=== PATIENT | female | born 1950 | race Caucasian/White ===

== ENCOUNTER 2016-11-04 22:22 | Inpatient (IN) | payer MEDICARE, BC ==
--- NOTE | ~2016-11-04 | HP ---
History And Physical [place] [id number] [facility] [place]. [address] NAME: NIKKI HEATON : 50 STATUS : ADM IN [facility]#: [id number] AGE: 65 ADM/REG DATE : 11/04/16 MR#: [id number] REPORT SERV DATE: 11/05/16 DICTATED BY: HEIDI SALVADOR DATE: 11/05/16 REPORT STATUS : Draft TRANSCRIBED BY: MODAman DATE: 11/05/16 DATE OF ADMISSION: 11/04/2016 CHIEF COMPLAINT: Heart valve infection. HISTORY OF PRESENT ILLNESS: Ms Heaton is a 65-year-old female with a past medical history of coronary artery disease, status post CABG [place] [address] Hutchinson, who is also noted to have two other vessels of 50% occlusion. However, around 10 days ago, the patient went to the ED after she could not walk anymore due to a mechanical fall that she had two weeks prior. Orthopedic surgeon has seen the patient, they have done a bone scan which was negative. She was also having shoulder pain, left greater than right shoulder pain. A C- spine MRI was done, which shows stenosis of the spine, but no cord compression. However, the patient continued to get more weakness and re-presented to the emergency room 24 hours ago. At that time, she was noted to be hypotensive, dehydrated, septic, and thrombocytopenic. She had a positive blood culture and found a vegetation on the mitral valve. Infectious Disease has seen the patient and have started her on vancomycin and Rocephin. She was transferred to our institution for evaluation by Cardiothoracic Surgery. Otherwise, the patient does not have any significant complaints at this moment in time. PAST MEDICAL HISTORY: Coronary artery disease status post CABG, polymyalgia rheumatica, ischemic bowel one year ago status post ileostomy, chronic prednisone. MEDICATIONS: Home medication includes as needed prednisone. ALLERGIES: THE PATIENT GETS NAUSEA WITH MORPHINE AND SULFA DRUGS. FAMILY HISTORY: Father had a history of lung cancer and from that, he was a heavy smoker. Mother had Alzheimer disease. Brother had an intracranial aneurysm, status post rupture and survived. REVIEW OF SYSTEMS: All pertinent review of systems reviewed and are otherwise negative. PHYSICAL EXAMINATION: VITAL SIGNS: Afebrile, heart rate 85, respiratory rate 12 to 14, oxygen saturation currently 100% on nasal cannula, blood pressure currently in the 130 systolic. GENERAL: The patient is resting in bed, no acute distress. HEENT: No JVD. Neck is supple. PULMONARY: Lungs are clear to auscultation bilaterally. CARDIAC: Regular rate, positive murmur, and the systolic ejection murmur heard best at the left sternal border. ABDOMINAL EXAMINATION: Abdomen is soft, nontender, nondistended. She has an ileostomy in place. Chronic healing wound noted in the periumbilical area. EXTREMITY EXAMINATION: No lower extremity edema. Peripheral pulses noted. IMAGING/LABORATORY DATA: Outside imaging and lab work shows white blood cell count 12.8, History And Physical [address] [address] NAME: NIKKI HEATON : 50 STATUS : ADM IN [facility]#: [id number] AGE: 65 ADM/REG DATE : 11/04/16 MR#: [id number] REPORT SERV DATE: 11/05/16 DICTATED BY: HEIDI SALVADOR DATE: 11/05/16 REPORT STATUS : Draft TRANSCRIBED BY: MODAman DATE: 11/05/16 normal creatinine. ASSESSMENT AND PLAN: Ms Heaton is a 65-year-old female with a past medical history noted above, who currently presents with endocarditis. At this moment in time, we will obtain outside hospital records, continue antibiotic therapy. We will have Cardiothoracic Surgery and Cardiology consultation. We will have the patient n.p.o. pending surgical evaluation. Prophylaxis. HFQ/MODL Heidi Salvador MD / [id number] CC: Tresa Mendoza MD
--- NOTE | ~2016-11-04 | CN ---
Consultation Report [facility] [address] [place]. [address] NAME: NIKKI CASTANEDA : 50 STATUS : ADM IN [facility]#: [id number] AGE: 65 ADM/REG DATE : 11/04/16 MR#: [id number] REPORT SERV DATE: 11/07/16 DICTATED BY: JEAN SINGH DATE: 11/06/16 REPORT STATUS : Draft TRANSCRIBED BY: MODL DATE: 11/06/16 CONSULTATION NOTE DATE OF CONSULTATION: 11/06/2016 REFERRING PHYSICIANS: Hospitalist. REASON FOR REFERRAL: Evaluation of endocarditis. HISTORY: The patient is a 65-year-old female who approximately two years ago underwent single-vessel coronary artery bypass grafting by Dr. Isaias Hutchinson at [facility]. More recently, she was having weakness, fatigue, inability to eat and presented to the [facility] Emergency Department where she was found to be septic. She was admitted with relative hypotension and echocardiogram showed mitral valve endocarditis. She was, therefore, thereafter transferred to [facility] for further care. Upon arrival to [facility], she was found to be severely thrombocytopenic with platelet count in the 30s as well as severely malnourished with an albumin of 1.4. A transesophageal echocardiogram was performed yesterday by Dr. Wing, which showed [id number] mitral valve regurgitation with vegetation on the mitral valve leaflets of approximately 2 cm in size. PAST MEDICAL HISTORY: Significant for coronary artery disease; polymyalgia rheumatica, on chronic prednisone; history of colon cancer with partial colectomy and subsequent ischemic bowel requiring ileostomy in 2015 with a residual nonhealing abdominal wound; history of obstructive uropathy with urosepsis and candidal UTI; obstructive sleep apnea; dyslipidemia; hypertension; and nephrolithiasis. PAST SURGICAL HISTORY: Includes ureteral stent placement, ischemic bowel and ileostomy as above, coronary artery bypass grafting, incisional hernia repair, breast reduction, appendectomy, hysterectomy, orthopedic surgery with hardware in 1990, a right total knee and a right total hip replacement. FAMILY HISTORY: Significant for colon cancer and Alzheimer disease. ALLERGIES: TO BACTRIM AND MORPHINE. SOCIAL HISTORY: No tobacco. Used alcohol occasionally. TRANSFER MEDICATIONS: Rocephin, vancomycin, heparin, sliding scale insulin, Bactroban, Protonix, Dilaudid, and oxycodone. REVIEW OF SYSTEMS: Otherwise, negative that which was stated above. PHYSICAL EXAMINATION: VITAL SIGNS: She is currently afebrile and vital signs are all stable. Consultation Report [place] [address] [place]. [address] NAME: NIKKI CASTANEDA : 50 STATUS : ADM IN PAT#: [id number] AGE: 65 ADM/REG DATE : 11/04/16 MR#: [id number] REPORT SERV DATE: 11/07/16 DICTATED BY: JEAN SINGH DATE: 11/06/16 REPORT STATUS : Draft TRANSCRIBED BY: ARACELI DATE: 11/06/16 GENERAL: She is lying in bed, extremely tired, and is currently not communicating. HEART: Regular rate and rhythm with a 3/6 systolic murmur. CHEST: Clear to auscultation bilaterally. ABDOMEN: Soft with a nonhealing wound and colostomy bag. MUSCULOSKELETAL: Grossly intact. NEUROLOGIC: Grossly intact. STUDIES: I personally reviewed her transesophageal echocardiogram and agree with the findings of Dr. Wing. IMPRESSION: Mitral valve endocarditis in a very sick and debilitated lady. PLAN: Due to her severe malnutrition; thrombocytopenia; poor wound healing state, on chronic prednisone, I think she is a poor surgical candidate currently. Good thing is that she does not have severe mitral regurgitation associated with this and a normal ejection fraction, so I think her heart can tolerate this [id number] degree of mitral regurgitation. I would advocate medical therapy currently, specifically antibiotics for a full course treatment with improvement of her nutritional status as well. At some point, approximately two weeks or further down the road, she will need to be reimaged to see if the vegetation is breaking apart or if the mitral valve is worsening as far as regurgitation. Again, as long as she is severely thrombocytopenic and malnourished, I would not recommend surgery until these were corrected. CCR/MODL Jean Singh M.D. / [id number] CC: Tresa Mendoza MD [facility]
--- NOTE | ~2016-11-04 | IDS ---
Interim Discharge Summary [facility] [address] [place]. [address] NAME: NIKKI CASTANEDA : 50 STATUS : ADM IN PAT#: [id number] AGE: 65 ADM/REG DATE : 11/04/16 MR#: [id number] REPORT SERV DATE: 11/11/16 DICTATED BY: ENID VIDAL DATE: 11/11/16 REPORT STATUS : Draft TRANSCRIBED BY: MODL DATE: 11/11/16 ADMISSION DATE: 11/04/2016 DISCHARGE DATE: REASON FOR ADMISSION: Transferred from [facility] for CT surgery consultation for her endocarditis. HISTORY OF PRESENT ILLNESS: Please refer Dr. Salvador's History and Physical dated 11/06/2007 for complete details on the patient's admission. In brief, the patient was admitted directly to the [employer] [facility] from [facility] for treatment of her bacterial endocarditis. HOSPITAL COURSE: The patient was initially transferred to Dr. Salvador's Service from [facility]. She was then transferred to the floor the following day. I assumed care of this patient on 11/05/2016. She initially was found have Streptococcus bacteremia at [facility], then transferred here for evaluation. She is found have strep bacterial endocarditis. [facility] was consulted Dr. Osman did the initial consultation, recommended a CHIO. CHIO was done by Dr. Wing on 11/05/2016, which showed a preserved left ventricular function of 60%, along with a large 1.5 x 2 cm vegetation on the mitral valve, with moderate anteriorly directed mitral regurgitation. With these findings, Cardiology recommended CT surgery evaluation. Dr. Anderson felt that the patient was a poor surgical candidate and will best be served by treatment of endocarditis with medical therapy. Dr. Tolentino had been on board on day #1, and switched her antibiotics over to penicillin G for her bacterial endocarditis. Cardiology had continued to follow the patient, but has now signed off on 11/11/2016, with plans to follow up as an outpatient with Dr. Gipson on 12/23/2016. Dr. Tolentino recommended getting a repeat echocardiogram in a few weeks to monitor the size of the vegetation. The patient's hospitalization is complicated by gross hematuria. She does have a history of ureteral stricture with a stent. The stricture was caused by I think previous radiation therapy after having colon cancer many years ago. She had a stent placed according to her , who was a family physician. The patient gets the stents exchanged out every one to three months by her urologist in [place]. She was developing gross hematuria, likely secondary to severe thrombocytopenia with a platelet count of 30. Continuous bladder irrigation was not clearing it up. Dr. Pandey was consulted and finally on 11/09/2016, he performed a cysto with clot evacuation and fulguration. Again, her gross hematuria was resolving after the clot evacuation, and since her platelet count had been increasing, however, she is now continuing to start throwing blood clots again and her urine is still bloodish-tinged. She is still on continuous bladder irrigation. Dr. Pandey continues to follow the patient. Wound care had been following the patient, as the patient has an open wound that was draining, and there is no signs of active infection, but of course, it is always a concern that she could be developing a fistula. She also did have some complaints of left pleuritic chest pain and some shortness of breath which is new on 11/11/2016. On physical exam, she does have significant crackles on the left side, but her lungs were clear to auscultation on the right. She does have some left upper extremity edema. She does have significant hypoalbuminemia, secondary to her chronic issues, and we will try some Lasix to see if this helps. She has ecchymosis diffusely which is her baseline according to her . She has severe PMR and she is on chronic steroids. Her Interim Discharge Summary [address] [address] NAME: NIKKI CASTANEDA : 50 STATUS : ADM IN [facility]#: [id number] AGE: 65 ADM/REG DATE : 11/04/16 MR#: [id number] REPORT SERV DATE: 11/11/16 DICTATED BY: ENID VIDAL DATE: 11/11/16 REPORT STATUS : Draft TRANSCRIBED BY: MODL DATE: 11/11/16 had sought her on steroid taper for her PMR, which we are currently in the midst of. She feels that her PMR though is getting better and is not as painful. She was noted to have a stage III decubitus ulcer prior to admission and air mattress was initiated. She was given two units of platelets for her thrombocytopenia prior to her cystoscopy. She did develop acute blood loss anemia, was likely secondary to her hematuria for which she received two units of packed red blood cells on the 11/09/2016 or 11/10/2016. Her hemoglobin has been stable since then. They did check a Hemoccult and 2/3 are positive, however, I suspect that her acute loss anemia likely secondary to hematuria and not from a GI bleed. DISPOSITION: We are making arrangements for the patient to be transferred to [facility] for long-term IV antibiotics. A PICC line should be placed prior to discharge, however, she is not ready for discharge as she continues to have gross hematuria and needs continuous bladder irrigation. Once this issue has resolved and she should be able to be transferred to [facility]. Further disposition per oncoming hospitalist. INTERIM DIAGNOSES: Gross hematuria with a history of ureteral stricture, status post stent in the past, status post cystoscopy by Dr. Pandey with clot evacuation and fulguration. Acute blood loss anemia, likely secondary to hematuria, possible volume overload, secondary to hypoalbuminemia. Hemoccult positive streptococcal endocarditis. PMR stage III decubitus, thrombocytopenia, initially likely secondary to infection, but now could be secondary to medication use. We will continue to monitor. History of colon cancer, status post colectomy abdominal wound. PROCEDURES: Include consultation Dr. Pandey, Dr. Tolentino, Dr. Wing, Dr. Osman, Wound Care, transesophageal echocardiogram, cystoscopy with clot evacuation. NEGRITO/ARACELI Enid Vidal MD / [id number] CC: Tresa Mendoza MD
--- NOTE | ~2016-11-04 | OP ---
Record Of Operation [facility] [address] [place]. [address] NAME: NIKKI HEATON : 50 STATUS : ADM IN [facility]#: [id number] AGE: 65 ADM/REG DATE : 11/04/16 MR#: [id number] REPORT SERV DATE: 11/09/16 DICTATED BY: SUKHDEV ARTHUR III DATE: 11/09/16 REPORT STATUS : Draft TRANSCRIBED BY: MODL DATE: 11/09/16 DATE OF PROCEDURE: 11/09/2016 PREOPERATIVE DIAGNOSIS: Gross hematuria with clot retention. POSTOPERATIVE DIAGNOSIS: Gross hematuria with clot retention. PROCEDURE: Cystoscopy, clot evacuation, and fulguration. SURGEON: Sukhdev Arthur M.D. ANESTHESIA: General. ESTIMATED BLOOD LOSS: 10 mL. DRAIN: A 24-Iranian three-way Foreman catheter. INDICATION: Ms. Heaton is a 65-year-old white female admitted to the hospital with endocarditis. She became thrombocytopenic and began having gross hematuria with clot retention. Bladder irrigation was begun, but this has been unsuccessful, she keeps having clots obstructing the catheter. A consent was obtained for the above procedure. DESCRIPTION OF PROCEDURE: After consent was obtained, the patient identified. She was taken to the OR and put to sleep. She was positioned in the low lithotomy position and prepped and draped in the usual fashion. The 25-Iranian cystoscope was made ready, inserted into the bladder, a clot was encountered; this was evacuated using the [employer] evacuators as she does have a right ureteral stent in place. The Bugbee electrode was used to cauterize a few areas where there was some oozing of blood. The bladder was left full and the scope removed. A 24-Iranian three-way Foreman catheter was inserted, the balloon inflated to 10 mL, and the bladder irrigation was begun. The patient was awakened and taken to recovery in stable condition. PH/MODL Sukhdev Arthur III, M.D. / [id number] CC: Tresa Mendoza MD
--- NOTE | ~2016-11-04 | CN ---
Consultation Report [facility] [address] [place]. [address] NAME: NIKKI HEATON : 50 STATUS : ADM IN [facility]#: [id number] AGE: 65 ADM/REG DATE : 11/04/16 MR#: [id number] REPORT SERV DATE: 11/05/16 DICTATED BY: SAM OSMAN DATE: 11/05/16 REPORT STATUS : Draft TRANSCRIBED BY: MODL DATE: 11/05/16 CARDIOLOGY CONSULTATION DATE OF CONSULTATION: 11/05/2016 REASON FOR CONSULTATION: Subacute bacterial endocarditis with mitral regurgitation. HISTORY OF PRESENT ILLNESS: Ms. 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 The patient sees Dr. Gipson for her cardiology care. She has history of coronary heart disease, status post minimally invasive left internal mammary artery to LAD surgery. The patient was in her usual state of health until several weeks prior to admission. Apparently, the patient was experiencing generalized fatigue, diffuse myalgias, and dizziness with a fall. The patient was also seen in Cardiology Clinic on 10/22, where she was complaining of increasing shortness of breath and swelling. The patient has a history of polymyalgia rheumatica. Her symptoms were apparently attributed to this. The patient had an increase in her chronic prednisone. Of note, the patient also has a slowly healing chronic abdominal wound with a small amount of chronic exudate. She has a colostomy from previous colectomy secondary to colon cancer. She also reports that she had her nails done and suffered a cut on her toe, which subsequently became inflamed and expressed some purulent drainage. The patient presented back to [facility] Emergency Room on 11/03/2016. At that time, the patient was apparently found to be hypotensive. The patient was admitted to the intensive care unit and treated for a septic shock with antibiotics. She apparently did not require vasopressors. She was started on vancomycin and Rocephin. The patient later had an echocardiogram performed, which demonstrated a mitral valve vegetation with moderate mitral regurgitation. The patient has been transferred to [facility] for further evaluation and management. At this time, the patient complains of generalized myalgias and extreme fatigue. She denies anginal-type chest pain. She denies dyspnea. PAST MEDICAL HISTORY: 1. History of polymyalgia rheumatica, on chronic prednisone. 2. History of colon cancer with partial colectomy and subsequent ischemic bowel, requiring ileostomy in 2016. The patient has a residual abdominal wound, which has been healing slowly over the last year. 3. Colon cancer, status post surgical resection and radiation treatment in the year 1999. 4. History of obstructive uropathy with urosepsis and candidal UTI. 5. Obstructive sleep apnea. 6. Coronary artery disease, status post single-vessel bypass surgery by Dr. Hutchinson in 2014. Consultation Report [place] [address] [facility] [place]. [id number] NAME: NIKKI HEATON : 50 STATUS : ADM IN [facility]#: [id number] AGE: 65 ADM/REG DATE : 11/04/16 MR#: [id number] REPORT SERV DATE: 11/05/16 DICTATED BY: SAM OSMAN DATE: 11/05/16 REPORT STATUS : Draft TRANSCRIBED BY: ARACELI DATE: 11/05/16 7. Dyslipidemia. 8. Hypertension. 9. Nephrolithiasis. PAST SURGICAL HISTORY: Significant for: 1. Cystoscopy with ureteral stent placement. 2. Colectomy with subsequent surgery for ischemic bowel and ileostomy as noted above. 3. Coronary artery bypass graft surgery x1 with CROUCH to LAD in the year 2014. 4. Incisional hernia repair in 2013. 5. Breast reduction in 1983. 6. Appendectomy in 1999. 7. Hysterectomy in 1999. 8. Orthopedic surgery to the patient's leg with placement of hardware in the year 1990. 9. Ventral hernia repair in 2000. 10.Right total hip replacement. 11.Right total knee replacement. FAMILY HISTORY: Apparently significant for colon cancer and Alzheimer disease, but negative for early coronary heart disease or sudden cardiac . ALLERGIES: THE PATIENT HAS DOCUMENTED ALLERGIES TO BACTRIM AND MORPHINE. SOCIAL HISTORY: The patient has no history of tobacco use. She has used alcohol recreationally in the past, but has no significant history of alcohol or drug abuse. TRANSFER MEDICATIONS: 1. Rocephin 1 g q.24 hours. 2. Vancomycin, per pharmacy dosing. 3. Heparin 5000 units subcu q.8 hours. 4. Sliding scale insulin. 5. Bactroban nasal ointment. 6. Protonix 40 mg IV daily. 7. Dilaudid p.r.n. 8. Oxycodone p.r.n. 9. IV normal saline. REVIEW OF SYSTEMS: A complete 12-system review was performed. This is noncontributory, except for the pertinent positives and negatives noted in the history of present illness above. PHYSICAL EXAMINATION: VITAL SIGNS: Temperature is 98.7 degrees Fahrenheit, blood pressure is 110/64 mmHg, heart rate is 90 beats per minute and regular, respirations 14, oxygen saturation is 97% on a 2 L nasal cannula. CONSTITUTIONAL: The patient is an ill-appearing 65-year-old woman, who is in no acute Consultation Report [address] [address] NAME: NIKKI HEATON : 50 STATUS : ADM IN [facility]#: [id number] AGE: 65 ADM/REG DATE : 11/04/16 MR#: [id number] REPORT SERV DATE: 11/05/16 DICTATED BY: SAM OSMAN DATE: 11/05/16 REPORT STATUS : Draft TRANSCRIBED BY: ARACELI DATE: 11/05/16 distress at this time. EYES: PERRL, EOMI. Clear conjunctiva. HEAD/MNT: NCAT with moist mucous membranes and grossly normal hard and soft palate. NECK: Supple with no obvious thyromegaly or lymphadenopathy. CARDIOVASCULAR: There is a regular rhythm with a normal S1 and a physiologically split second heart sound. There is a grade 3/6 holosystolic murmur noted at the cardiac apex, which radiates throughout the precordium. The jugular venous pressure is normal. PULMONARY: Limited exam as the patient has poor inspiratory effort and is unable to sit forward. However, the lungs are grossly clear to auscultation bilaterally with no wheezing, rales, rhonchi, or dullness to percussion noted. ABDOMEN: The abdomen is soft and nontender. There is a colostomy bag noted in the right lower quadrant, which is clean, dry and intact. The patient has dressing over a slowly healing abdominal wound in the midline with evidence of a small amount of drainage. No gross organomegaly is noted. EXTREMITIES: There is 2+ pitting edema of the lower extremities bilaterally. MUSCULOSKELETAL: Grossly normal strength and range of motion in all extremities. SKIN: There is skin laxity with diffuse bruising of various stages, consistent with chronic prednisone use. Aside from the aforementioned abdominal wound, there do not appear to be any other active lesions at this time. NEURO/PSYC: Alert and oriented x3 with no dysarthria, facial droop, or lateralizing weakness noted. DATA: 12-lead EKG: A 12-lead EKG has not been performed yet at [facility]. An old EKG from [facility] is reviewed and shows normal sinus rhythm with nonspecific ST/T-wave abnormalities. The GA interval is normal. Chest x-ray: Pending. Laboratory: Labs from [facility] indicate gram-positive cocci in pairs and chains with preliminary speciation being consistent with group B strep. CBC shows a white blood cell count of 11.4, hemoglobin 9.1, hematocrit 28, platelets 39. Metabolic profile shows a sodium of 141, potassium 4.0, chloride is 108, CO2 is 24, BUN 29, creatinine is 0.8, calcium is 7.4, albumin is severely decreased at 1.3 with total protein decreased at 5.3. A TSH is within normal limits at 0.4. ASSESSMENT AND PLAN: 1. Group B strep mitral endocarditis: The echocardiogram from [facility] indicates that the patient's vegetation measures 1.0 x 1.2 cm. There is moderate mitral regurgitation. The patient does have a pronounced murmur, and I feel it would be important to accurately quantify the degree of mitral regurgitation as well as evaluate for any evidence of abscess or other involvement which may require surgery. The patient has been n.p.o. and reports she had no breakfast this morning and has had essentially no p.o. intake. The transesophageal echocardiogram will be scheduled as soon as possible this afternoon. The patient appears to be a relatively poor candidate Consultation Report [place] [id number] [facility] [place]. [address] NAME: NIKKI HEATON : 50 STATUS : ADM IN [facility]#: [id number] AGE: 65 ADM/REG DATE : 11/04/16 MR#: [id number] REPORT SERV DATE: 11/05/16 DICTATED BY: SAM OSMAN DATE: 11/05/16 REPORT STATUS : Draft TRANSCRIBED BY: MODL DATE: 11/05/16 for surgery. If at all possible, the patient's condition will be managed medically. Her thrombocytopenia, decreased albumin, and poor functional status would make me very concerned if sternotomy were required. 2. Elevated cardiac biomarkers: The patient was found to have mildly elevated cardiac biomarkers at [facility]. This most likely represents a WHO type 2 [place]. It is possible the patient was started on subcu heparin for this, though this may be for DVT prophylaxis. At any rate, given the patient's anemia and thrombocytopenia, I would recommend utmost Lovenox 40 mg subcu for DVT prophylaxis with no therapeutic heparin as the patient's elevated troponin likely is secondary to demand ischemia. The maximum troponin I appears to have been 0.85. 3. Evaluation for congestive heart failure. I will obtain a portable chest x-ray. The patient did have an elevated BNP noted at [facility], which was apparently 729. This is somewhat concerning for clinically significant mitral regurgitation. Again, a transesophageal echocardiogram will be obtained to address this issue. 4. The ID Service is following the patient and is making recommendations for antimicrobial therapy. Thank you for allowing me to participate in the care of Ms. Heaton. We will continue to follow the patient closely during this admission. JCH/MIKEL Sam Osman MD / [id number] CC: Tresa Mendoza MD
--- NOTE | ~2016-11-04 | TEE ---
Transesophageal Echocardiogram [place] [id number] [place]. [address] NAME: NIKKI CASTANEDA : 50 STATUS : ADM IN [facility]#: [id number] AGE: 65 ADM/REG DATE : 11/04/16 MR#: [id number] REPORT SERV DATE: 11/05/16 DICTATED BY: ADRIAN WING DATE: 11/05/16 REPORT STATUS : Draft TRANSCRIBED BY: ARACELI DATE: 11/05/16 TRANSESOPHAGEAL ECHOCARDIOGRAM INDICATION: A 65-year-old woman with endocarditis. PROCEDURE: After questions were answered, the consents were signed, the patient was sedated with propofol per Anesthesia. The probe was placed in the midesophagus and images were obtained without difficulty. At the conclusion of the procedure, the probe was withdrawn and the patient was recovering in the short-stay unit. No complications were noted. 2D INTERPRETATION: The left ventricular size and function is normal. The heart was somewhat off axis with somewhat difficulty in evaluating everything clearly. The mitral valve opened adequately. There was a large vegetation which appeared to be on the atrial aspect of the posterior leaflet of the mitral valve, it had a large sessile component, but also with small filamentous component as well. Rough dimensions were 1.5 x 2.0 cm. There was no clear involvement of the anterior leaflet. The left atrium was enlarged. No thrombus was suggested in the left atrium or in the left atrial appendage. There was moderate anteriorly directed mitral regurgitation. Pulmonary veins on the right and the left were evaluated with normal S and D waves with no sign of systolic flow reversal. The interatrial septum was grossly intact. There was lipomatous hypertrophy of the septum with significant shadowing on all angles interfering with evaluation of the tricuspid valve. Color flow showed no significant tricuspid regurgitation, but valve structure and vegetation could not be clearly seen. The pulmonic valve was reasonably seen with no obvious vegetation and no significant pulmonic insufficiency. The aortic valve was trileaflet and opened adequately. No vegetation or insufficiency was noted. The right ventricle was grossly normal in size. No pericardial effusion was noted. Moderate atherosclerotic plaquing was noted in the aorta and aortic arch. Color flow reported as above. CONCLUSION: 1. PRESERVED LEFT VENTRICULAR SYSTOLIC FUNCTION WITH ESTIMATED LVEF OF 60%. 2. LARGE 1.5 X 2.0 CM VEGETATION ON THE MITRAL VALVE WITH MODERATE ANTERIORLY DIRECTED MITRAL REGURGITATION. MODERATE ATHEROSCLEROTIC PLAQUING WAS NOTED IN THE DESCENDING AORTA AND AORTIC ARCH. 3. NO OTHER AREAS OF ENDOCARDITIS WERE VISUALIZED. WO/MODL Adrian Wing M.D., Ph.D, F.A.C.C. / [id number] CC: Transesophageal Echocardiogram [address] [address] NAME: NIKKI CASTANEDA : 50 STATUS : ADM IN [facility]#: [id number] AGE: 65 ADM/REG DATE : 11/04/16 MR#: [id number] REPORT SERV DATE: 11/05/16 DICTATED BY: ADRIAN WING DATE: 11/05/16 REPORT STATUS : Draft TRANSCRIBED BY: ARACELI DATE: 11/05/16 Tresa Mendoza MD
--- NOTE | ~2016-11-04 | DS ---
Discharge Summary [place] [id number] [place]. [address] NAME: NIKKI CASTANEDA : 50 STATUS : DIS IN PAT#: [id number] AGE: 66 ADM/REG DATE : 11/04/16 MR#: [id number] REPORT SERV DATE: 11/16/16 DICTATED BY: MCKENZIEMAGALIS CRISTINE DATE: 11/15/16 REPORT STATUS : Draft TRANSCRIBED BY: MODL DATE: 11/15/16 ADMISSION DATE: 11/04/2016 DISCHARGE DATE: 11/15/2016 DISCHARGE DIAGNOSES: 1. Sepsis with endocarditis. The patient is not a surgical candidate. Continue the penicillin G until 12/14/2016. PICC line is inserted today. 2. Hemorrhagic cystitis, most likely related with the previous radiation injury to the bladder, has been troubled with hematuria. It has been treated with Dr. Pandey here with a bladder irrigation and we used alum last time and then had a very serious reaction to that with bladder spasm, so it was discontinued, but it started to clear up. 3. Thrombocytopenia secondary to sepsis. 4. Chronic steroid use with chronic pain medicine. 5. Decubitus ulcer stage 2. 6. Obesity. CONSULTANTS: 1. Dr. Osman. 2. Dr. Tolentino. 3. Dr. Pandey. 4. Dr. Farias. PROCEDURES: 1. CHIO showed a large 1.5 x 2.0 vegetation on the mitral valve. 2. Cystoscope and clot evacuation with Dr. Pandey. HISTORY OF PRESENT ILLNESS: This is a 66-year-old unfortunate female patient, who has been on chronic steroids for polymyalgia rheumatica, who was transferred from [facility] to get surgical opinion for her endocarditis with mitral valve vegetation. Please see dictated H and P done by Dr. Salvador. HOSPITAL COURSE: Initially, she was admitted to the hospital in ICU setting for bacterial endocarditis evaluation. Seen by the multiple consultants and cardiothoracic surgeon. She was thought to be not a good candidate for the open heart surgery along with her chronic comorbidities. She decided to be continuing the penicillin G treatment for the mitral valve endocarditis. She stayed in stable condition throughout the hospital stay. Please see dictated interim discharge summary done by Dr. Vidal. For the last days of her hospitalization, it was more related with hematuria with anemia. She did not require transfusion. She had to go and get the cystoscope with Dr. Pandey due to this hematuria. After that, she was put on irrigation. Continued to have the hematuria but her H and H have been stable. Her thrombocytopenia has been improved. So for the last couple of days, she has been on alum irrigation, but she had a bladder spasm with it and Dr. Pandey discontinued the bladder irrigation. Now, she is voiding without any problem and postvoid residual is not big in amount, it was less than 50 mL every time we checked. Discharge Summary [place] [id number] [place]. [address] NAME: NIKKI CASTANEDA : 50 STATUS : DIS IN PAT#: [id number] AGE: 66 ADM/REG DATE : 11/04/16 MR#: [id number] REPORT SERV DATE: 11/16/16 DICTATED BY: MAGALIS PEREZ DATE: 11/15/16 REPORT STATUS : Draft TRANSCRIBED BY: ARACELI DATE: 11/15/16 Finally, we had a PICC line done on her right on and it is working and the patient continued to use the penicillin G at the [facility] until 12/14/[address] Tolentino's instruction. Overall, she had improvement, stabilized, maximized the inpatient benefit. 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 DISCHARGE MEDICATIONS: 1. Continue aspirin 81 mg once a day. 2. Lipitor 10 mg once at nighttime. 3. Vitamin B once a day. 4. Prozac 40 mg once a day. 5. Folic acid 800 mg every 48 hours. 6. Multivitamin once a day. 7. Trazodone 100 mg once at bedtime. 8. Prednisone will be tapered down slowly every week down to 10 mg, currently she is on 20 mg. We are going to continue at 5 mg for her maintaining dose. 9. Penicillin G will continue to be 24 hours. Continue to use until 12/14/2016. 10.Percocet 5 as needed. DISPOSITION: The patient is discharged to [facility] for a rehab when ongoing IV antibiotic treatment. TIME SPENT: More than 30 minutes on discharge coordination. EKL/MODL Magalis Perez M.D. / [id number] CC: Tresa Mednoza MD
--- NOTE | ~2016-11-04 | CN ---
Consultation Report [facility] [address] [place]. [address] NAME: NIKKI CASTANEDA : 50 STATUS : ADM IN PAT#: [id number] AGE: 65 ADM/REG DATE : 11/04/16 MR#: [id number] REPORT SERV DATE: 11/05/16 DICTATED BY: ALEJANDRO ABEL DATE: 11/05/16 REPORT STATUS : Draft TRANSCRIBED BY: MODL DATE: 11/05/16 INFECTIOUS DISEASE CONSULT DATE OF CONSULTATION: REASON FOR EVALUATION: Treatment of endocarditis. HISTORY OF PRESENT ILLNESS: The patient is a 65-year-old female. She has a history of coronary artery disease. She had coronary artery bypass grafting in 2014. She was diagnosed with colon cancer, for which she had a resection seventeen years ago. She was diagnosed several years ago with polymyalgia rheumatica, which was controlled by steroids. She remains on a dose of 5 mg of prednisone per day. In 2015, she developed abdominal pain, was found to have an obstruction, and required surgery for small-bowel obstruction and an ileostomy. The wound has been slowly closing over the last year, was not felt to be infected. She states she started feeling ill sometime in the last couple of weeks with just general malaise, weakness. She actually fell about two weeks ago and began to hurt and ache all over including her lower extremities, her right shoulder. She was seen in the emergency room at the end of October and multiple imaging modalities were done with no findings of any sort of fracture or deep injury, but she continued to feel worse and worse, re-appeared at [facility] on 11/03/2016 so weak she said she really could not continue on. Her blood pressure was lower. Her blood pressure medicines had to be stopped. She did not have fever, but had an elevated white blood cell count, low platelets, and appeared septic. Blood cultures were done and she was started empirically on vancomycin and Rocephin. Those came back positive yesterday for gram-positive cocci, pairs and chains. An echocardiogram was done, transthoracic with findings of one centimeter mitral valve vegetation and mitral regurgitation, so she was transferred here for evaluation by Cardiothoracic Surgery. She is afebrile. Her white blood cell count is improved, but she still feels very ill and weak and achy all over. She had no recent medical procedures during this year, but she did have a pedicure, in which her right third toe was nicked and bled. She said, it was draining pus, this occurred about three weeks ago. Her abdominal wound is still present, but is slowly closing, has not gotten any worse, and a CT scan of her abdomen and pelvis done at [facility] showed no obvious pathology or signs of infection there. PAST MEDICAL HISTORY: Otherwise, unremarkable. MEDICATIONS: As mentioned above. ALLERGIES: SHE IS ALLERGIC TO SEPTRA, WHICH CAUSES HER RASH. SHE LIVES IN [place]. HER HAS A PRIMARY CARE PHYSICIAN. SHE IS ORIGINALLY A [place] [employer] [place], BUT HAS BEEN THERE NINETEEN YEARS. SHE IS A [employer] AND HAS NO HISTORY OF ALCOHOL OR SUBSTANCE ABUSE. FAMILY HISTORY: Noncontributory. Consultation Report [place] [id number] [facility] [place]. [address] NAME: NIKKI CASTANEDA : 50 STATUS : ADM IN [facility]#: [id number] AGE: 65 ADM/REG DATE : 11/04/16 MR#: [id number] REPORT SERV DATE: 11/05/16 DICTATED BY: ALEJANDRO ABEL DATE: 11/05/16 REPORT STATUS : Draft TRANSCRIBED BY: ARACELI DATE: 11/05/16 PHYSICAL EXAMINATION: GENERAL: Mildly ill-appearing adult female, in no severe distress. She is alert and oriented x3. VITAL SIGNS: Her temperature here has been normal, it is 98.7 most recently with a pulse of 90, respirations 14, blood pressure 110/64, weight 62 kg. HEENT: Sclerae clear. There are no oropharyngeal lesions. NECK: Supple without meningeal signs or lymphadenopathy. LUNGS: There are some crackles in the bases, otherwise clear. HEART: Regular rate and rhythm with a pansystolic murmur 2 to 3 over 6. ABDOMEN: Soft, nontender. Positive bowel sounds with no signs of infection there. Ileostomy site looks okay. EXTREMITIES: Without clubbing, cyanosis, or edema. No swollen, red, or hot joints. Her toe lesion is healed. There is nothing that looks like an embolic lesion. No rashes. She does have multiple ecchymoses, which have been present as long she has been on the steroids per the patient. LABORATORY DATA: Her white blood cell count was 12 when she presented at [facility], it is 11.4 today here with a hematocrit of 27.7, platelets are 39, unremarkable differential. Her BUN and creatinine, 29 and 0.82. IMPRESSION: Mitral valve endocarditis due to group B strep, which is what her organism was identified as in [facility] with large vegetation, remains to be seen whether any of this is an indication for surgery. RECOMMENDATIONS: We will change her antibiotics to IV penicillin with synergistic gentamicin. Cardiothoracic Surgery is to see her. She is going to have a transesophageal echocardiogram. Finally, I will follow the patient with you. I appreciate very much your consulting on this patient. KEYANA/ARACELI Alejandro Abel M.D. / [id number] CC: Tresa Mendoza MD
--- NOTE | ~2016-11-04 | CN ---
Consultation Report [address] [place]. [address] NAME: NIKKI HEATON : 50 STATUS : ADM IN PAT#: [id number] AGE: 65 ADM/REG DATE : 11/04/16 MR#: [id number] REPORT SERV DATE: 11/06/16 DICTATED BY: SUKHDEV ARTHUR III DATE: 11/06/16 REPORT STATUS : Draft TRANSCRIBED BY: MODL DATE: 11/06/16 CONSULTATION DATE OF CONSULTATION: REQUESTING PHYSICIAN: Dr. Dias. REASON FOR CONSULTATION: Gross hematuria. HISTORY OF PRESENT ILLNESS: Ms. Heaton is a 65-year-old white female admitted to the hospital now with endocarditis. She has had a catheter in place and gross hematuria requiring hand irrigation. 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 It was changed in September. She also has a history of bladder tumor of unknown pathology. She also has thrombocytopenia. She has had gross hematuria for approximately 48 hours requiring an irrigation. PAST MEDICAL HISTORY: As above. History of cataracts, history of coronary artery disease, angina, arthritis, polymyalgia rheumatica, history of rectal cancer, history of possible bladder cancer, and eczema. PAST SURGICAL HISTORY: Bilateral cataracts, bilateral hips replaced, cholecystectomy, appendectomy, colon resection, tonsillectomy, adenoidectomy, hysterectomy, right cystoscopy, and right ureteral stent change. MEDICATIONS: Reviewed. ALLERGIES: SHE IS ALLERGIC TO SULFA. PHYSICAL EXAMINATION: GENERAL: The patient is awake. She has a Foreman catheter draining bloody urine. VITAL SIGNS: T-max is 99.2. Urine output appears to be 1500. LABORATORY DATA: Lab work shows platelet count of 39,000. BUN and creatinine are 29 and 0.82. ASSESSMENT: 1. Gross hematuria. 2. Indwelling right ureteral stent. 3. History of bladder tumor. 4. Thrombocytopenia. PLAN: We will have a 20-M[place] three-way Foreman catheter placed and hand irrigate for now, possible continuous bladder irrigation if required. Urine culture will be sent, and we will Consultation Report [address] [place]. [address] NAME: NIKKI HEATON : 50 STATUS : ADM IN PAT#: [id number] AGE: 65 ADM/REG DATE : 11/04/16 MR#: [id number] REPORT SERV DATE: 11/06/16 DICTATED BY: SUKHDEV ARTHUR III DATE: 11/06/16 REPORT STATUS : Draft TRANSCRIBED BY: ARACELI DATE: 11/06/16 check a KUB for stent placement. PH/MODL Sukhdev Arthur III, M.D. / [id number] CC: Tresa Mendoza MD
[~2016-11-04 22:22] MED LIST: ALEVE220 MG PO; ASAB PO; CARDCD360 PO; IMDUR30 PO; ISMO20 MG PO; LIPITOR40 PO; LOP25 PO; NITROSTAT0.4 MG; NORCO1 TA1 PO; P5 PO; PROZAC PO; TRAZ100 PO
[2016-11-05 04:33] LABS: BASOPHILS 0.1 %; BASOPHILS ABSOLUTE 0.01 10/3/uL (0.0-0.16); EOSINOPHILS 0.1 %; EOSINOPHILS ABSOLUTE 0.01 10/3/uL (0.0-0.53); HEMOGLOBIN 9.1 g/dL (12.0-16.0); IMMATURE GRANULOCYTES 0.6 %; IMMATURE GRANULOCYTES ABSOLUTE 0.07 10/3/uL (0.0-0.11); LYMPHOCYTES 9.5 %; LYMPHOCYTES ABSOLUTE 1.08 10/3/uL (0.67-4.30); MEAN PLATELET VOLUME 13.4 fL (9.2-13.0); MONOCYTES 5.4 %; MONOCYTES ABSOLUTE 0.62 10/3/uL (0.21-1.20); NEUTROPHILS 84.3 %; NEUTROPHILS ABSOLUTE 9.63 10/3/uL (2.02-8.40); RBC DISTRIBUTION WIDTH 15.8 % (12.0-16.0); WHITE BLOOD CELLS 11.4 10/3/uL (4.5-10.5)
[2016-11-05 04:35] LABS: HEMATOCRIT 27.7 % (36.0-48.0); MEAN CORPUS HGB CONC 32.9 g/dL (32.0-36.0); MEAN CORPUSCULAR HEMOGLOB 33.3 pg (26.0-34.0); MEAN CORPUSCULAR VOLUME 101.5 fL (80-100); PLATELET COUNT 39 10/3/uL (150-400); RED CELL COUNT 2.73 10/6/uL (4.0-5.6)
[2016-11-05 04:37] LABS: MANUAL DIFF NO %
[2016-11-05 04:56] LABS: A/G RATIO 0.3 (0.7-1.9); ALBUMIN 1.3 G/DL (3.5-5.0); ALKALINE PHOSPHATASE 98 U/L (45-117); CHLORIDE, SERUM 108 MMOL/L (96-112); CREATININE 0.82 MG/DL (0.55-1.02); FREE T4 0.59 NG/DL (0.76-1.46); GFR AFRICAN AMERICAN 87 ML/MIN (>=60); GFR NON AFRICAN AMERICAN 75 ML/MIN (>=60); GLUCOSE, SERUM 90 MG/DL (60-99); MACROCYTES 1+ (5-10/OIF) (0-5/OIF); PHOSPHORUS, SERUM 2.7 MG/DL (2.5-4.5); SGOT(AST) 21 U/L (5-40); SGPT(ALT) 16 U/L (5-65); SODIUM, SERUM 141 MMOL/L (135-148); TOTAL BILIRUBIN 0.2 MG/DL (0-1.2); TOTAL PROTEIN 5.3 G/DL (6.0-8.5)
[2016-11-05 05:04] LABS: BUN (BLOOD UREA NITROGEN) 29 MG/DL (6-23); CALCIUM, SERUM 7.4 MG/DL (8.5-10.4); CO2 (CARBON DIOXIDE) 24 MMOL/L (24-34)
[2016-11-05] MEDS ORDERED: PROZAC40 MG PO (10:48)
[2016-11-05] MEDS ORDERED: PCET PO (10:48)
[2016-11-05] MEDS ORDERED: HALF81 PO (10:49)
[2016-11-05] MEDS ORDERED: TRAZ100 PO (10:49)
[2016-11-05] MEDS ORDERED: P10 PO (10:51)
[2016-11-05] MEDS ORDERED: FLINTSTONE3 PO (10:51)
[2016-11-05] MEDS ORDERED: FOLIC ACID800 MCG PO (10:51)
[2016-11-05] MEDS ORDERED: CYANO1000T PO (10:51)
[2016-11-05] MEDS ORDERED: LIPITOR10 PO (10:52)
[2016-11-06 04:06] LABS: BASOPHILS 0 %; EOSINOPHILS 0.1 %; EOSINOPHILS ABSOLUTE 0.01 10/3/uL (0.0-0.53); HEMATOCRIT 26.5 % (36.0-48.0); HEMOGLOBIN 8.6 g/dL (12.0-16.0); IMMATURE GRANULOCYTES 0.4 %; IMMATURE GRANULOCYTES ABSOLUTE 0.03 10/3/uL (0.0-0.11); LYMPHOCYTES 12.7 %; LYMPHOCYTES ABSOLUTE 0.93 10/3/uL (0.67-4.30); MEAN CORPUS HGB CONC 32.5 g/dL (32.0-36.0); MEAN CORPUSCULAR HEMOGLOB 33.3 pg (26.0-34.0); MEAN CORPUSCULAR VOLUME 102.7 fL (80-100); MEAN PLATELET VOLUME 13.1 fL (9.2-13.0); MONOCYTES 4.5 %; MONOCYTES ABSOLUTE 0.33 10/3/uL (0.21-1.20); NEUTROPHILS 82.3 %; RBC DISTRIBUTION WIDTH 15.6 % (12.0-16.0); RED CELL COUNT 2.58 10/6/uL (4.0-5.6); WHITE BLOOD CELLS 7.3 10/3/uL (4.5-10.5)
[2016-11-06 04:08] LABS: MANUAL DIFF NO %; PLATELET COUNT 39 10/3/uL (150-400)
[2016-11-06 04:27] LABS: ANISOCYTOSIS 1+ (5-10/OIF) (0-5/OIF); TARGET CELLS FEW (3-10/OIF) (0-1/OIF)
[2016-11-06 05:32] LABS: PARTIAL THROMBO TIME 31.2 SEC (22.5-37.2)
[2016-11-06 05:33] LABS: FIBRINOGEN 550 MG/DL (230-462); INTERNATIONAL NORMAL RATI 1.3 UNITS (-); PROTIME (NOT ORD) 15.8 SEC (12.0-14.5)
[2016-11-06 05:36] LABS: D-DIMER QUANTITATIVE 2.81 ug/mLFEU (< 0.50)
[2016-11-06 05:49] LABS: CALCIUM, SERUM 7.2 MG/DL (8.5-10.4); CHLORIDE, SERUM 109 MMOL/L (96-112); CO2 (CARBON DIOXIDE) 22 MMOL/L (24-34); CREATININE 0.86 MG/DL (0.55-1.02); GFR AFRICAN AMERICAN 82 ML/MIN (>=60); GFR NON AFRICAN AMERICAN 71 ML/MIN (>=60); GLUCOSE, SERUM 80 MG/DL (60-99); POTASSIUM, SERUM 3.8 MMOL/L (3.5-5.3); SODIUM, SERUM 142 MMOL/L (135-148)
[2016-11-06 05:54] LABS: BUN (BLOOD UREA NITROGEN) 20 MG/DL (6-23); PHOSPHORUS, SERUM 1.8 MG/DL (2.5-4.5)
[2016-11-06 18:01] LABS: ASCORBIC ACID (UR NOT ORDER) NEG (NEG); BILIRUBIN, URINE NEGATIVE (NEG); KETONE, URINE NEGATIVE (NEG); LEUKOCYTE ESTERASE(NOT OR SMALL (NEG)
[2016-11-06 18:03] LABS: WBC (NOT ORDERED) (RFLEX) > 182 (0-5)
[2016-11-07 04:17] LABS: BASOPHILS 0 %; EOSINOPHILS 0 %; HEMATOCRIT 24.3 % (36.0-48.0); HEMOGLOBIN 7.9 g/dL (12.0-16.0); IMMATURE GRANULOCYTES 0.5 %; IMMATURE GRANULOCYTES ABSOLUTE 0.03 10/3/uL (0.0-0.11); MEAN CORPUS HGB CONC 32.5 g/dL (32.0-36.0); MEAN CORPUSCULAR HEMOGLOB 32.8 pg (26.0-34.0); MEAN CORPUSCULAR VOLUME 100.8 fL (80-100); MEAN PLATELET VOLUME 12.9 fL (9.2-13.0); MONOCYTES 5.8 %; MONOCYTES ABSOLUTE 0.37 10/3/uL (0.21-1.20); NEUTROPHILS 79.7 %; NEUTROPHILS ABSOLUTE 5.12 10/3/uL (2.02-8.40); RED CELL COUNT 2.41 10/6/uL (4.0-5.6); WHITE BLOOD CELLS 6.4 10/3/uL (4.5-10.5)
[2016-11-07 04:23] LABS: PLATELET COUNT 46 10/3/uL (150-400)
[2016-11-07 04:24] LABS: MANUAL DIFF NO %
[2016-11-07 04:26] LABS: CALCIUM, SERUM 7.6 MG/DL (8.5-10.4); CHLORIDE, SERUM 110 MMOL/L (96-112); CO2 (CARBON DIOXIDE) 23 MMOL/L (24-34); CREATININE 0.74 MG/DL (0.55-1.02); GFR AFRICAN AMERICAN 99 ML/MIN (>=60); GFR NON AFRICAN AMERICAN 85 ML/MIN (>=60); GLUCOSE, SERUM 89 MG/DL (60-99); SODIUM, SERUM 144 MMOL/L (135-148)
[2016-11-07 04:28] LABS: BUN (BLOOD UREA NITROGEN) 13 MG/DL (6-23)
[2016-11-07 04:46] LABS: HYPOCHROMIA 1+ (3-10/OIF) (0-2/OIF); MACROCYTES 1+ (5-10/OIF) (0-5/OIF)
[2016-11-09 07:10] LABS: BASOPHILS 0.1 %; BASOPHILS ABSOLUTE 0.01 10/3/uL (0.0-0.16); EOSINOPHILS 0.2 %; EOSINOPHILS ABSOLUTE 0.02 10/3/uL (0.0-0.53); HEMATOCRIT 24.5 % (36.0-48.0); HEMOGLOBIN 8.1 g/dL (12.0-16.0); IMMATURE GRANULOCYTES 0.9 %; IMMATURE GRANULOCYTES ABSOLUTE 0.07 10/3/uL (0.0-0.11); LYMPHOCYTES 12.3 %; LYMPHOCYTES ABSOLUTE 1.01 10/3/uL (0.67-4.30); MEAN CORPUS HGB CONC 33.1 g/dL (32.0-36.0); MEAN CORPUSCULAR HEMOGLOB 33.6 pg (26.0-34.0); MEAN CORPUSCULAR VOLUME 101.7 fL (80-100); MEAN PLATELET VOLUME 13.4 fL (9.2-13.0); MONOCYTES 6.6 %; MONOCYTES ABSOLUTE 0.54 10/3/uL (0.21-1.20); NEUTROPHILS 79.9 %; NEUTROPHILS ABSOLUTE 6.56 10/3/uL (2.02-8.40); RBC DISTRIBUTION WIDTH 15.5 % (12.0-16.0); RED CELL COUNT 2.41 10/6/uL (4.0-5.6); WHITE BLOOD CELLS 8.2 10/3/uL (4.5-10.5)
[2016-11-09 07:13] LABS: MANUAL DIFF NO %; PLATELET COUNT 101 10/3/uL (150-400)
[2016-11-09 10:23] LABS: POTASSIUM, SERUM 4.1 MMOL/L (3.5-5.3); SODIUM, SERUM 140 MMOL/L (135-148)
[2016-11-09 10:43] LABS: BUN (BLOOD UREA NITROGEN) 15 MG/DL (6-23); CALCIUM, SERUM 7.8 MG/DL (8.5-10.4); CHLORIDE, SERUM 107 MMOL/L (96-112); CO2 (CARBON DIOXIDE) 24 MMOL/L (24-34); CREATININE 0.84 MG/DL (0.55-1.02); GFR AFRICAN AMERICAN 85 ML/MIN (>=60); GFR NON AFRICAN AMERICAN 73 ML/MIN (>=60); GLUCOSE, SERUM 82 MG/DL (60-99); PHOSPHORUS, SERUM 1.6 MG/DL (2.5-4.5)
[2016-11-10 08:51] LABS: BUN (BLOOD UREA NITROGEN) 12 MG/DL (6-23); CALCIUM, SERUM 7.9 MG/DL (8.5-10.4); CHLORIDE, SERUM 106 MMOL/L (96-112); CO2 (CARBON DIOXIDE) 24 MMOL/L (24-34); CREATININE 0.86 MG/DL (0.55-1.02); GFR AFRICAN AMERICAN 82 ML/MIN (>=60); GFR NON AFRICAN AMERICAN 71 ML/MIN (>=60); POTASSIUM, SERUM 4.4 MMOL/L (3.5-5.3); SODIUM, SERUM 141 MMOL/L (135-148)
[2016-11-10 08:53] LABS: GLUCOSE, SERUM 132 MG/DL (60-99); PHOSPHORUS, SERUM 3.5 MG/DL (2.5-4.5)
[2016-11-10 10:30] LABS: BASOPHILS 0.1 %; BASOPHILS ABSOLUTE 0.01 10/3/uL (0.0-0.16); EOSINOPHILS 0 %; IMMATURE GRANULOCYTES 0.7 %; IMMATURE GRANULOCYTES ABSOLUTE 0.05 10/3/uL (0.0-0.11); LYMPHOCYTES ABSOLUTE 0.59 10/3/uL (0.67-4.30); MEAN CORPUS HGB CONC 32.3 g/dL (32.0-36.0); MEAN CORPUSCULAR HEMOGLOB 33.2 pg (26.0-34.0); MEAN CORPUSCULAR VOLUME 102.6 fL (80-100); MEAN PLATELET VOLUME 12.2 fL (9.2-13.0); MONOCYTES ABSOLUTE 0.37 10/3/uL (0.21-1.20); NEUTROPHILS 86.2 %; PLATELET COUNT 79 10/3/uL (150-400); RBC DISTRIBUTION WIDTH 15.7 % (12.0-16.0); WHITE BLOOD CELLS 7.4 10/3/uL (4.5-10.5)
[2016-11-10 10:32] LABS: HEMOGLOBIN 6.3 g/dL (12.0-16.0)
[2016-11-10 10:33] LABS: HEMATOCRIT 19.5 % (36.0-48.0); MANUAL DIFF NO %
[2016-11-10 10:59] LABS: MACROCYTES 1+ (5-10/OIF) (0-5/OIF); PLATELET ESTIMATE DEC (ADEQUATE); TOXIC GRANULATION 1+; VACUOLATED NEUTROPHILES 1+
[2016-11-10 11:00] LABS: GIANT PLATELET RARE
[2016-11-11 02:26] LABS: BASOPHILS 0.1 %; BASOPHILS ABSOLUTE 0.01 10/3/uL (0.0-0.16); EOSINOPHILS 0.1 %; EOSINOPHILS ABSOLUTE 0.01 10/3/uL (0.0-0.53); IMMATURE GRANULOCYTES 1.2 %; IMMATURE GRANULOCYTES ABSOLUTE 0.09 10/3/uL (0.0-0.11); LYMPHOCYTES 11.4 %; LYMPHOCYTES ABSOLUTE 0.85 10/3/uL (0.67-4.30); MEAN CORPUSCULAR HEMOGLOB 32.5 pg (26.0-34.0); MEAN PLATELET VOLUME 11.7 fL (9.2-13.0); MONOCYTES 5.9 %; MONOCYTES ABSOLUTE 0.44 10/3/uL (0.21-1.20); NEUTROPHILS 81.3 %; NEUTROPHILS ABSOLUTE 6.04 10/3/uL (2.02-8.40); PLATELET COUNT 67 10/3/uL (150-400); RBC DISTRIBUTION WIDTH 17.5 % (12.0-16.0); WHITE BLOOD CELLS 7.4 10/3/uL (4.5-10.5)
[2016-11-11 02:29] LABS: HEMATOCRIT 26.8 % (36.0-48.0); HEMOGLOBIN 9.2 g/dL (12.0-16.0); MANUAL DIFF NO %; MEAN CORPUS HGB CONC 34.3 g/dL (32.0-36.0); MEAN CORPUSCULAR VOLUME 94.7 fL (80-100); RED CELL COUNT 2.83 10/6/uL (4.0-5.6)
[2016-11-11 02:40] LABS: BUN (BLOOD UREA NITROGEN) 14 MG/DL (6-23); CALCIUM, SERUM 7.5 MG/DL (8.5-10.4); CHLORIDE, SERUM 110 MMOL/L (96-112); CO2 (CARBON DIOXIDE) 26 MMOL/L (24-34); CREATININE 0.84 MG/DL (0.55-1.02); GFR AFRICAN AMERICAN 85 ML/MIN (>=60); GFR NON AFRICAN AMERICAN 73 ML/MIN (>=60); GLUCOSE, SERUM 85 MG/DL (60-99); PHOSPHORUS, SERUM 2.6 MG/DL (2.5-4.5); POTASSIUM, SERUM 4.6 MMOL/L (3.5-5.3); SODIUM, SERUM 145 MMOL/L (135-148)
[2016-11-11 02:53] LABS: GIANT PLATELET FEW; PLATELET ESTIMATE DEC (ADEQUATE); RBC MORPHOLOGY NORM (NORMAL)
[2016-11-12 14:14] LABS: BASOPHILS 0.1 %; BASOPHILS ABSOLUTE 0.01 10/3/uL (0.0-0.16); EOSINOPHILS 0 %; HEMOGLOBIN 10.6 g/dL (12.0-16.0); IMMATURE GRANULOCYTES 0.7 %; IMMATURE GRANULOCYTES ABSOLUTE 0.07 10/3/uL (0.0-0.11); LYMPHOCYTES 4.2 %; LYMPHOCYTES ABSOLUTE 0.43 10/3/uL (0.67-4.30); MEAN CORPUSCULAR HEMOGLOB 31.2 pg (26.0-34.0); MEAN CORPUSCULAR VOLUME 96.8 fL (80-100); MEAN PLATELET VOLUME 11.5 fL (9.2-13.0); MONOCYTES 3.2 %; MONOCYTES ABSOLUTE 0.32 10/3/uL (0.21-1.20); NEUTROPHILS 91.8 %; NEUTROPHILS ABSOLUTE 9.29 10/3/uL (2.02-8.40); RBC DISTRIBUTION WIDTH 17.4 % (12.0-16.0); WHITE BLOOD CELLS 10.1 10/3/uL (4.5-10.5)
[2016-11-12 14:16] LABS: HEMATOCRIT 32.9 % (36.0-48.0); MANUAL DIFF NO %; MEAN CORPUS HGB CONC 32.2 g/dL (32.0-36.0); PLATELET COUNT 110 10/3/uL (150-400)
[2016-11-12 14:25] LABS: BUN (BLOOD UREA NITROGEN) 14 MG/DL (6-23); CALCIUM, SERUM 7.9 MG/DL (8.5-10.4); CHLORIDE, SERUM 98 MMOL/L (96-112); CO2 (CARBON DIOXIDE) 31 MMOL/L (24-34); CREATININE 1.02 MG/DL (0.55-1.02); GFR AFRICAN AMERICAN 66 ML/MIN (>=60); GFR NON AFRICAN AMERICAN 57 ML/MIN (>=60); GLUCOSE, SERUM 150 MG/DL (60-99); PHOSPHORUS, SERUM 2.4 MG/DL (2.5-4.5); POTASSIUM, SERUM 3.5 MMOL/L (3.5-5.3); SODIUM, SERUM 140 MMOL/L (135-148)
[2016-11-13 05:25] LABS: BASOPHILS 0.2 %; BASOPHILS ABSOLUTE 0.01 10/3/uL (0.0-0.16); EOSINOPHILS 0.2 %; EOSINOPHILS ABSOLUTE 0.01 10/3/uL (0.0-0.53); HEMATOCRIT 28.1 % (36.0-48.0); HEMOGLOBIN 9.2 g/dL (12.0-16.0); IMMATURE GRANULOCYTES 1.1 %; IMMATURE GRANULOCYTES ABSOLUTE 0.07 10/3/uL (0.0-0.11); LYMPHOCYTES ABSOLUTE 1.26 10/3/uL (0.67-4.30); MANUAL DIFF NO %; MEAN CORPUS HGB CONC 32.7 g/dL (32.0-36.0); MEAN CORPUSCULAR HEMOGLOB 31.8 pg (26.0-34.0); MEAN CORPUSCULAR VOLUME 97.2 fL (80-100); MEAN PLATELET VOLUME 11.5 fL (9.2-13.0); MONOCYTES 7.4 %; MONOCYTES ABSOLUTE 0.49 10/3/uL (0.21-1.20); NEUTROPHILS 72.1 %; NEUTROPHILS ABSOLUTE 4.79 10/3/uL (2.02-8.40); PLATELET COUNT 105 10/3/uL (150-400); RED CELL COUNT 2.89 10/6/uL (4.0-5.6); WHITE BLOOD CELLS 6.6 10/3/uL (4.5-10.5)
[2016-11-13 05:39] LABS: BUN (BLOOD UREA NITROGEN) 12 MG/DL (6-23); CALCIUM, SERUM 7.6 MG/DL (8.5-10.4); CHLORIDE, SERUM 103 MMOL/L (96-112); CO2 (CARBON DIOXIDE) 32 MMOL/L (24-34); CREATININE 0.79 MG/DL (0.55-1.02); GFR AFRICAN AMERICAN 90 ML/MIN (>=60); GFR NON AFRICAN AMERICAN 78 ML/MIN (>=60); PHOSPHORUS, SERUM 2.5 MG/DL (2.5-4.5); SODIUM, SERUM 143 MMOL/L (135-148)
[2016-11-13 05:57] LABS: GLUCOSE, SERUM 77 MG/DL (60-99)
[2016-11-13 05:58] LABS: POTASSIUM, SERUM 4.4 MMOL/L (3.5-5.3)
[2016-11-14 04:48] LABS: BASOPHILS 0.1 %; BASOPHILS ABSOLUTE 0.01 10/3/uL (0.0-0.16); EOSINOPHILS 0 %; HEMOGLOBIN 10.4 g/dL (12.0-16.0); IMMATURE GRANULOCYTES 1.1 %; IMMATURE GRANULOCYTES ABSOLUTE 0.19 10/3/uL (0.0-0.11); LYMPHOCYTES 13.7 %; LYMPHOCYTES ABSOLUTE 2.41 10/3/uL (0.67-4.30); MEAN CORPUS HGB CONC 32.3 g/dL (32.0-36.0); MEAN CORPUSCULAR HEMOGLOB 31.4 pg (26.0-34.0); MEAN CORPUSCULAR VOLUME 97.3 fL (80-100); MEAN PLATELET VOLUME 11.6 fL (9.2-13.0); MONOCYTES 7.7 %; MONOCYTES ABSOLUTE 1.35 10/3/uL (0.21-1.20); NEUTROPHILS 77.4 %; NEUTROPHILS ABSOLUTE 13.62 10/3/uL (2.02-8.40); RBC DISTRIBUTION WIDTH 16.7 % (12.0-16.0); RED CELL COUNT 3.31 10/6/uL (4.0-5.6)
[2016-11-14 04:53] LABS: HEMATOCRIT 32.2 % (36.0-48.0); MANUAL DIFF NO %; PLATELET COUNT 178 10/3/uL (150-400); WHITE BLOOD CELLS 17.6 10/3/uL (4.5-10.5)
[2016-11-14 05:07] LABS: BUN (BLOOD UREA NITROGEN) 15 MG/DL (6-23); CALCIUM, SERUM 8.2 MG/DL (8.5-10.4); CHLORIDE, SERUM 97 MMOL/L (96-112); CREATININE 1.17 MG/DL (0.55-1.02); GFR AFRICAN AMERICAN 56 ML/MIN (>=60); GFR NON AFRICAN AMERICAN 49 ML/MIN (>=60); PHOSPHORUS, SERUM 2.2 MG/DL (2.5-4.5); POTASSIUM, SERUM 4.5 MMOL/L (3.5-5.3); SODIUM, SERUM 138 MMOL/L (135-148)
[2016-11-14 05:13] LABS: CO2 (CARBON DIOXIDE) 25 MMOL/L (24-34); GLUCOSE, SERUM 148 MG/DL (60-99)
[2016-11-15 05:57] LABS: BASOPHILS 0 %; EOSINOPHILS 0 %; IMMATURE GRANULOCYTES ABSOLUTE 0.09 10/3/uL (0.0-0.11); LYMPHOCYTES 14.6 %; LYMPHOCYTES ABSOLUTE 1.36 10/3/uL (0.67-4.30); MEAN CORPUS HGB CONC 32.2 g/dL (32.0-36.0); MEAN CORPUSCULAR HEMOGLOB 31.5 pg (26.0-34.0); MEAN CORPUSCULAR VOLUME 98.1 fL (80-100); MEAN PLATELET VOLUME 11.3 fL (9.2-13.0); MONOCYTES 6.2 %; MONOCYTES ABSOLUTE 0.58 10/3/uL (0.21-1.20); NEUTROPHILS 78.2 %; RBC DISTRIBUTION WIDTH 16.6 % (12.0-16.0)
[2016-11-15 05:58] LABS: HEMATOCRIT 25.5 % (36.0-48.0); HEMOGLOBIN 8.2 g/dL (12.0-16.0); MANUAL DIFF NO %; PLATELET COUNT 103 10/3/uL (150-400); WHITE BLOOD CELLS 9.3 10/3/uL (4.5-10.5)
[2016-11-15 06:07] LABS: BUN (BLOOD UREA NITROGEN) 14 MG/DL (6-23); CHLORIDE, SERUM 101 MMOL/L (96-112); CREATININE 0.81 MG/DL (0.55-1.02); GFR AFRICAN AMERICAN 88 ML/MIN (>=60); GFR NON AFRICAN AMERICAN 76 ML/MIN (>=60); POTASSIUM, SERUM 4.1 MMOL/L (3.5-5.3); SODIUM, SERUM 141 MMOL/L (135-148)
[2016-11-15 06:09] LABS: CO2 (CARBON DIOXIDE) 31 MMOL/L (24-34); GLUCOSE, SERUM 78 MG/DL (60-99); PHOSPHORUS, SERUM 3.6 MG/DL (2.5-4.5)
== END 2016-11-15 18:53 | DRG 853 ==
LOC: CCU 22:22 → 7NO 11-05 13:55
PROVIDERS: Internal Medicine; Internal Medicine Critical Care Medicine; Internal Medicine Infectious Disease; Urology
PROC: B246ZZ4 Ultrasonography of Right and Left Heart, Transesophageal (ICD-10-PCS; 2016-11-05)
PROC: 0TCB8ZZ Extirpation of Matter from Bladder, Via Natural or Artificial Opening Endoscopic (ICD-10-PCS; 2016-11-09)
PROC: 0T5B8ZZ Destruction of Bladder, Via Natural or Artificial Opening Endoscopic (ICD-10-PCS; principal; 2016-11-09 21:34)
PROC: 30233N1 Transfusion of Nonautologous Red Blood Cells into Peripheral Vein, Percutaneous Approach (ICD-10-PCS; 2016-11-10)
PROC: 02HV33Z Insertion of Infusion Device into Superior Vena Cava, Percutaneous Approach (ICD-10-PCS; 2016-11-15)
PROC: 4A02X4A Measurement of Cardiac Electrical Activity, Guidance, External Approach (ICD-10-PCS; 2016-11-15)
DX: A41.9 Sepsis, unspecified organism (principal); I33.0 Acute and subacute infective endocarditis; E43 Unspecified severe protein-calorie malnutrition; L89.153 Pressure ulcer of sacral region, stage 3; D69.6 Thrombocytopenia, unspecified; N30.41 Irradiation cystitis with hematuria; D62 Acute posthemorrhagic anemia; E86.0 Dehydration; I25.10 Atherosclerotic heart disease of native coronary artery without angina pectoris; B95.1 Streptococcus, group B, as the cause of diseases classified elsewhere; I10 Essential (primary) hypertension; M35.3 Polymyalgia rheumatica; E78.5 Hyperlipidemia, unspecified; G47.33 Obstructive sleep apnea (adult) (pediatric); N32.89 Other specified disorders of bladder; Z68.25 Body mass index [BMI] 25.0-25.9, adult; F17.210 Nicotine dependence, cigarettes, uncomplicated; Y84.2 Radiological procedure and radiotherapy as the cause of abnormal reaction of the patient, or of later complication, without mention of misadventure at the time of the procedure; Y92.239 Unspecified place in hospital as the place of occurrence of the external cause; Z93.2 Ileostomy status; Z88.5 Allergy status to narcotic agent; Z88.2 Allergy status to sulfonamides; Z95.1 Presence of aortocoronary bypass graft; Z85.118 Personal history of other malignant neoplasm of bronchus and lung; Z85.038 Personal history of other malignant neoplasm of large intestine; Z96.651 Presence of right artificial knee joint; Z96.641 Presence of right artificial hip joint; Z79.52 Long term (current) use of systemic steroids
CPT/HCPCS: 36415; 36569; 71010; 74000; 80048; 80053; 80170; 80202; 81001; 82272; 82962; 83735; 83880; 84100; 84439; 84443; 85025; 85049; 85379; 85384; 85610; 85730; 86850; 86900; 86901; 86920; 87040; 87086; 87641; 93312; 93320; 93325; 97163-GP; 97164-GP; A9270-GY; C1751; C9113; G8978-CK-GP; G8978-CN-GP; G8979-CJ-GP; G8979-CM-GP; J0330; J1170; J1580; J1720; J2250; J2370; J2405; J2540; J3010; J3370; P9016